=== PATIENT | male | born 1945 | race Caucasian/White ===

== ENCOUNTER 2018-05-18 10:53 | Observation (INO) | payer OTHER ==
--- NOTE | 2018-05-17 16:37 | GHP ---
[f rep st] PREOP HISTORY AND PHYSICAL DATE OF ADMISSION: 05/18/2018 ADMISSION DIAGNOSIS: BPH with urinary retention. HISTORY OF PRESENT ILLNESS: This is a 73-year-old gentleman who has had significant BPH in the past, followed for years, at the present time has elected to undergo surgical treatment. He has been on f inasteride 5 mg a day, and Rapaflo 10 mg a day, and his AUA score was noted to be up to 22 on medicat ion, and he has elected to undergo the procedure. He has had a cystoscopy that revealed a urachal re mnant, and prostate with inflammatory polyps, and a transrectal ultrasound of the prostate that revea led normal seminal vesicles. He had an intravesical lobe of the prostate. Prostate measured 37.1 gm , and a PSA density of 0.038, and he had periurethral calcifications. MEDICATIONS: Have been discussed. ALLERGIES: None. FAMILY HISTORY: Hypertension. SOCIAL HISTORY: Mild alcohol consumption, nonsmoker. REVIEW OF SYSTEMS: Negative cardiac, respiratory, GI, and endocrine. PHYSICAL EXAMINATION: VITAL SIGNS: Stable. CHEST: Clear. HEART: Regular rate and rhythm. ABDOM EN: Normal. No organomegaly, rebound, or guarding. LOWER EXTREMITIES: Normal. PROSTATE: Right i s greater than left, and prostate volume was noted to be 37.1 g. PSA as of 12/09/2016, was 1.06. ASSESSMENT AND PLAN: At the present time, he is admitted for transurethral resection of the prostate . Indications and options have been discussed. Written and verbal consent has been obtained. He is admitted for the above procedure. /[id number]/MODL
--- NOTE | 2018-05-18 07:42 | PDHPUP ---
History & Physical Update H&P update statement: This history and physical update is based on an assessment of the patient which was completed after admission or registration (within 24 hours), but prior to the surgery/procedure. H&P update: H&P reviewed & patient examined, no change in patient's condition since H&P completed
[2018-05-18] MEDS ORDERED: ceFAZolin 2 GM/DEXTROSE 100 ML IV ONE (11:15)
[2018-05-18] MEDS ORDERED: LIDOCAINE 1% 2 ML INJ ID PRN (11:16)
[2018-05-18] MEDS ORDERED: LR 1,000 ML IV ONE (11:16)
--- NOTE | 2018-05-18 12:12 | PDANEPAE ---
ANE Past Medical History - Cardiovascular History Hx Hypertension: No Hx Arrhythmias: No Hx Chest Pain: No Hx Coronary Artery / Peripheral Vascular Disease: No Hx CHF / Valvular Disease: No Hx Palpitations: No Cardiovascular History Comment: SYNCOPAL EPISODE. RBBB. PACEMAKER 2016 - Pulmonary History Hx COPD: No Hx Asthma/Reactive Airway Disease: No Hx Recent Upper Respiratory Infection: No Hx Oxygen in Use at Home: No Hx Sleep Apnea: No Sleep Apnea Screening Result - Last Documented: Negative - Neurologic History Hx Cerebrovascular Accident: No Hx Seizures: No Hx Dementia: No Neurologic History Comment: BALANCE PROBLEM FOLLOWING VESTIBULAR VIRUS IN 2010. OCCAS OCULAR MIGRAINES - Endocrine History Hx Diabetes: No - Renal History Hx Renal Disorders: No Renal History Comment: BPH - Liver History Hx Hepatic Disorders: No - Neurological & Psychiatric Hx Hx Neurological and Psychiatric Disorders: No - Cancer History Hx Cancer: No - Congenital Disorder History Hx Congenital Disorders: No - GI History Hx Gastrointestinal Disorders: No - Other Health History Other Health History: SKIN RASHES OCCAS MILD - Chronic Pain History Chronic Pain: No - Surgical History Prior Surgeries: KNEE SCOPE R. BROW LIFT. COLONOSCOPIES. PACEMAKER IMPLANTED R ANE Review of Systems Review of Systems: - Exercise capacity METS (RN): 5 METS - Pacemaker Pacemaker Type: Permanent Pacer/Defib Pacemaker [employer] Installer: [employer] Date Pacemaker Last Checked: 05-01-2018 ANE Patient History - Allergies Allergies/Adverse Reactions: No Known Allergies Allergy (Verified 05/15/18 10:11) - Home Medications Home Medications: Alfuzosin HCl [Alfuzosin HCl ER] 10 mg PO HS 05/27/15 [Last Taken 1 Day Ago ~] Finasteride [Proscar 5 MG (*)] 5 mg PO DAILY 05/27/15 [Last Taken 05/18/18] Multivitamins [Multivitamin (*)] 1 each PO DAILY 05/27/15 [Last Taken 1 Day Ago ~05/17/18] Herbals/Supplements -Info Only 1 ea PO DAILY 05/15/18 [Last Taken 1 Day Ago ~] Ibuprofen [Motrin (*)] 200 mg PO TID PRN 05/15/18 [Last Taken 1 Week Ago ~] Triamcinolone Acetonide [Nasacort] 1 spray NS DAILY 05/15/18 [Last Taken Unknown ] - NPO status NPO Since - Liquids (Date): 05/18/18 NPO Since - Liquids (Time): 09:15 NPO Since - Solids (Date): 05/18/18 NPO Since - Solids (Time): 03:15 - Smoking Hx Smoking Status: Never smoked ANE Labs/Vital Signs - Vital Signs Blood Pressure: 180/97 Heart Rate: 61 Respiratory Rate: 18 O2 Sat (%): 96 Height: 177.8 cm Weight: 68.353 kg ANE Physical Exam - Airway Neck exam: FROM Mallampati Score: Class 2 Mouth exam: normal dental/mouth exam - Pulmonary Pulmonary: no respiratory distress - Cardiovascular Cardiovascular: regular rate and rhythym - ASA Status ASA Status: II ANE Anesthesia Plan Anesthesia Plan: general endotracheal anesthesia
[2018-05-18] MEDS ORDERED: LIDOCAINE 2% JELLY 20 ML (UROJECT) ONE (12:16)
[2018-05-18] MEDS ORDERED: MIDAZOLAM 2 MG/2 ML VIAL IVP ONE (12:17)
[2018-05-18] MEDS ORDERED: MIDAZOLAM 2 MG/2 ML VIAL ONE (12:24)
[2018-05-18] MEDS ORDERED: PROPOFOL 200 MG/20 ML VIAL ONE (12:31)
[2018-05-18] MEDS ORDERED: fentaNYL 100 MCG/2 ML INJ ONE (12:31)
[2018-05-18] MEDS ORDERED: LIDOCAINE 2% 100 MG/5 ML SYR ONE (12:31)
[2018-05-18] MEDS ORDERED: ROCURONIUM 50 MG/5 ML VIAL ONE (12:31)
[2018-05-18] MEDS ORDERED: SUGAMMADEX SODIUM 200 MG/2 ML VIAL IVP ONE (12:58)
[2018-05-18] MEDS ORDERED: ONDANSETRON 4 MG/2 ML VIAL IVP PRN ×2 (13:56→14:04)
[2018-05-18] MEDS ORDERED: NALOXONE HCL 0.4 MG/ML INJ IVP PRN (13:56)
[2018-05-18] MEDS ORDERED: fentaNYL 100 MCG/2 ML INJ IVP PRN (13:56)
[2018-05-18] MEDS ORDERED: ALBUTEROL 3 ML DEYVIAL IH PRN (13:56)
--- NOTE | 2018-05-18 13:56 | POSTANESTH ---
Post Anesthetic Evaluation Cardiovascular Status: Similar to Pre-Op Cond Respiratory Status: Similar to Pre-op Cond. Level of Consciousness/Mental Status: Mildly Sleepy, Arousable Pain Control: Adequate, Prn Tx Ordered Nausea/Vomiting Control: Adequate, Prn Tx Ordered Complications Possibly Related to Anesthesia: None Noted
[2018-05-18] MEDS ORDERED: ACETAMINOPHEN 325 MG TAB PO PRN (14:04)
[2018-05-18] MEDS ORDERED: ZOLPIDEM TARTRATE 5 MG TAB PO PRN (14:04)
[2018-05-18] MEDS ORDERED: ONDANSETRON DISINTEGRATING 4 MG TAB PO PRN (14:04)
[2018-05-18] MEDS ORDERED: OPIUM/BELLADONNA ALKALO SUPP PR PRN (14:04)
[2018-05-18] MEDS ORDERED: HYDROmorphONE/DILAUDID 1 MG/ML INJ IVP PRN (14:04)
--- NOTE | 2018-05-18 14:04 | POSTOPPROG ---
Post Op Note Date of Operation: 05/18/18 (dictated) Surgeon: Malachi Fishman Anesthesiologist: Nohemi Anesthesia: LMA Pre-op Diagnosis: bph Procedure: turp Inf/Abcess present in the surg proc area at time of surgery?: No EBL: Minimal Drains: Other (hernandez / 100 ml balloon) Specimen(s): sent
--- NOTE | 2018-05-18 14:06 | GOP ---
[f rep st] OPERATIVE REPORT DATE OF OPERATION: 05/18/2018 SURGEON: Malachi Fishman MD PREOPERATIVE DIAGNOSIS: Benign prostatic hypertrophy with urinary obstruction. POSTOPERATIVE DIAGNOSIS: Benign prostatic hypertrophy with urinary obstruction. PROCEDURE PERFORMED: Transurethral resection of the prostate. FINDINGS: DESCRIPTION OF PROCEDURE: Gentleman underwent general anesthesia, prepped and draped in normal steri le fashion. After appropriate time-out, scope was passed into his bladder. He had +4 trabeculation with hyperemia of the bladder. No suggestion of malignancy. He had an intravesical lobe and lateral lobar hypertrophy, so I took down the intravesical lobe initially and then resecting the right later al lobe, right portion of the posterior lobe, left lateral lobe, and left portion of the posterior lo be resected. Hemostasis via cauterization, and his bladder was Ellik'd free of all chips and clots. Visualization revealed no residual chips or clots. Ureteral orifices were clear and in normal posit ion. External sphincter approximated at the midline symmetrically and verumontanum was preserved. U ro-Jet placed in urethra. A 3-way catheter passed to the bladder, 100 cc balloon inflated, traction placed, and irrigated clear. He will be admitted for postoperative care. I will discuss the findings with his . Specimen sent for pathologic assessment. /[id number]/MODL
[2018-05-18] MEDS: POTASSIUM Cl (KCl) 10 MEQ in D5W 1/2 NS 1,000 ML IV SCH ×2 (15:34→22:54)
[2018-05-18] MEDS: FLUTICASONE NASAL 120 SPRAYS/16 GM MDI EACHNARE SCH (21:00)
[2018-05-18] MEDS: HYDROCODONE/APAP 5/325 TAB PO PRN ×2 (21:19→22:53)
[2018-05-19] MEDS: HYDROCODONE/APAP 5/325 TAB PO PRN (05:42)
[2018-05-19] MEDS: POTASSIUM Cl (KCl) 10 MEQ in D5W 1/2 NS 1,000 ML IV SCH (05:43)
--- NOTE | 2018-05-19 10:33 | SOAPPROG ---
SOAP Progress Note Assessment/Plan: Assessment: BPH loc w urin obs/LUTS Acute POD #1, doing well and plan dc hernandez Plan: dc home if pt voids 05/19/18 10:32 Subjective: no problems Objective: Vital Signs Temp Pulse Resp BP Pulse Ox 36.7 C 59 L 18 149/85 H 98 05/19/18 08:55 05/19/18 09:34 05/19/18 09:34 05/19/18 09:34 05/19/18 09:34 05/18/18 05/19/18 05/20/18 05:59 05:59 05:59 Intake Total 3980 Output Total 22224 Balance -6670 Physical Exam - Physical Exam General Appearance: alert Neck: supple Respiratory: No respiratory distress Cardiac/Chest: regular rate, rhythm Male Genitalia: normal genitalia Extremities: No calf tenderness, No Rigo's sign Neuro/Psych: alert, oriented x 3 ICD10 Worksheet Patient Problems: Problems Problem Status Onset BPH loc w urin obs/LUTS Acute Pre-syncope Acute - ICD10 Problem Qualifiers (1) BPH loc w urin obs/LUTS
[2018-05-19] MEDS: FLUTICASONE NASAL 120 SPRAYS/16 GM MDI EACHNARE SCH (10:37)
--- NOTE | 2018-05-19 15:43 | ASDISCHSUM ---
Discharge Information Plan Status:Home with Home Health Medically Cleared to Leave:05/18/2018 Discharge Date:05/18/2018 CM D/C Disposition:Home, Routine, Self-Care ADT D/C Disposition:Home, Routine, Self-Care Projected Discharge Date:05/19/2018 12:00 AM Transportation at D/C:Family Discharge Delay Reason: Follow-Up Date:05/19/2018 12:00 AM Discharge Slot:2 - 12:01 pm - 18:00 pm Final Diagnosis:Severe constipation Placement Information Patient Contact Information Contact Name:CHRISTIANO Relationship: Address:[address] [place] [address] City:[place] Alternate Phone: State/Zip Code:[place] [address] Email: Financial Information Financial Class:Medicare Advantage Plans Primary Plan Desc:[employer] MEDICARE COMPLETE SECURE Primary Plan Number:[id number] Secondary Plan Desc: Secondary Plan Number: Assessment Information Intervention Information
--- NOTE | 2018-05-19 15:48 | ASMTDCNOTE ---
Case Management Discharge Discharge Order Complete? Answers: Yes Patient to Obtain Answers: via Family Medications Transportation Arranged Answers: Family/Friends EMTALA Complete Answers: No Case Management Transport Answers: No Form Complete Faxed Final Orders Answers: No Agency/Facility Transfer Answers: No Report Printed & Faxed to Receiving Agency Family Notified Answers: Yes Discharge Comments Notes: Patient is 73 year old gentleman presented for planned transurethral resection of the prostate. CM met with patient, he will discharge home with family. IM delivered and signed, placed in back of chart. Patient to follow up as recommended. CM available to support if any additional CM needs arise. Date Signed: 05/19/2018 03:48 PM Electronically Signed By:Jacqueline Blanco
[2018-05-19 18:28] VITALS: BP 166/88
== END 2018-05-19 19:07 | disposition home or self-care (01) ==
LOC: F1N 10:53
PROVIDERS: ADMIT Specialist; ATTEND Specialist
PROC: 0TBC8ZZ Excision of Bladder Neck, Via Natural or Artificial Opening Endoscopic (ICD-10-PCS; principal; 2018-05-18 12:30)
DX: N40.1 Benign prostatic hyperplasia with lower urinary tract symptoms (principal); R33.9 Retention of urine, unspecified; R35.0 Frequency of micturition; R26.89 Other abnormalities of gait and mobility; Z95.0 Presence of cardiac pacemaker
CPT/HCPCS: 52500; 88305; G0378; J0690; J2001; J2250; J2704; J3010; J3480

== ENCOUNTER 2018-05-19 23:57 | Emergency (ER) | payer OTHER ==
--- NOTE | 2018-05-20 00:25 | EDPHY ---
General - History Smoking Status: Never smoked Time Seen by Provider: 05/20/18 00:23 Narrative: CLINICAL IMPRESSION: Acute urinary retention ASSESSMENT/PLAN: Patient is a 73-year-old male with a significant medical history of BPH who is postop day 2 transurethral prostatectomy who presents to the emergency department with acute urinary retention. Patient is afebrile and not toxic- appearing, he no acute distress on arrival. Patient's abdomen was soft, mild tenderness in the suprapubic region without rebound or guarding; no evidence of a surgical abdomen. Bladder scan revealed 700 mL retained urine; 450 mL post void residual. History and physical examination today is consistent with acute urinary retention. Patient was treated with a Rios catheter and a large amount of urine was returned. UA revealed RBCs, WBCs, bacteria and trace leukocyte esterase. Urine was sent for culture, treated conservatively with Ceftin which he will continue for the next 7 days. On repeat examination the patient reports he is feeling much better, all symptoms seem to be resolved with the Rios catheter. His abdomen was soft and nontender to palpation, no evidence of a surgical abdomen. The patient is well established with Dr. Fishman , he will call on Tuesday to schedule follow-up and Rios removal. Conservative return precautions discussed-he will return for fever, abdominal pain, chest pain, shortness of breath, recurrent urinary retention or for any other concerning symptom. Patient verbalizes understanding and he is in agreement with this plan. DIFFERENTIAL DX: Differential diagnosis including but not limited to and in no particular order, obstruction, infection, medication side effect, trauma ED COURSE: 0040: Patient with 700 mL on bladder scan, 450 mL post void residual 0045: Case discussed with Dr. New 0144: On repeat examination the patient is well-appearing, he reports that he is feeling much better. His abdomen is soft and nontender to palpation. CHIEF COMPLAINT: Urinary retention HPI: Patient is a 73-year-old male who is postop day 2 after transurethral prostatectomy secondary to BPH who presents to the emergency department with acute urinary retention. Patient was discharged yesterday evening, was able to void prior to discharge. Patient went home yesterday evening, was noticing that his urine output was decreasing. Went to sleep and ultimately is only able to urinate a very small amount and feels that he is retaining. Patient denies any significant blood clots when urinating. He has had no fever, chills , nausea or vomiting. He denies any abdominal discomfort. He has had no chest pain or shortness of breath. He denies any testicular pain or swelling. He denies any other complaints or concerns. PMH: Syncope Pertinent Past Surgical History: Pacemaker implantation, transurethral prostatectomy Family History: Noncontributory Social History: Denies illicit drug use, cigarette smoking REVIEW OF SYSTEMS: All other systems negative Constitutional: No fever, no chills, appetite change. Eyes: No discharge, vision change ENT: No sore throat, congestion, ear pain. Cardiovascular: No chest pain, no palpitations. Respiratory: No cough, no shortness of breath. Gastrointestinal: No abdominal pain, no vomiting, diarrhea. Genitourinary: Urinary retention. Musculoskeletal: No back pain, joint swelling, joint pain, myalgias. Skin: No rashes, color change. Neurological: No headache, dizziness, weakness. PHYSICAL EXAM: General Appearance: Patient is well-appearing, no acute distress. HENT: Normocephalic, atraumatic. Bilateral external ears are normal. Bilateral tympanic membranes are normal with pearly womack reflex. Nares are clear, mucosa is pink. Oropharynx is clear, uvula is midline. There is no tonsillar enlargement or exudate. The dentition is normal. Eyes: PERRLA, no acute vision change, nystagmus, swelling, discharge, pain or photosensitivity. Conjunctiva pink, no pallor or injection Neck: Supple, nontender, no lymphadenopathy, no midline pain, FROM, no meningismus. Respiratory: There are no retractions, lungs are clear to auscultation. Cardiac: Regular rate and rhythm, no murmurs or gallops. Gastrointestinal: Patient's abdomen is soft, mildly distended. He has tenderness to palpation in the suprapubic region, no rigidity, guarding or focal peritoneal findings. Bowel sounds are normal. No masses or hernias appreciated. Neurological: Alert and oriented x 3, CN 2-12 grossly intact, normal gait no ataxia, DTR's intact, normal sensation and strength Skin: Warm, dry, no rashes, no nodules on palpation. Musculoskeletal: Extremities are symmetrical, full range of motion, no tenderness, deformity, swelling, or erythema. Psychiatric: Patient is oriented X 3, there is no agitation. MEDICAL DECISION MAKING: Patient was seen independently. Secondary supervising physician at time of evaluation was Dr. New, she did not personally evaluate this patient. Diagnosis: Acute urinary retention. New, requires workup Summary: See Assessment and Plan for summary of ED visit Clinical lab tests: ordered / reviewed. Independent visualization of images, tracing, or specimens: Yes. Decision to obtain medical records or history from someone other than the patient: Yes, Review / Summarize previous medical records: Yes Discussed patient with another provider: Yes, Dr. New Patient Progress: Stable, discharge. (Elaine Kaur) PHYSICIAN DOCUMENTATION: The patient was evaluated and managed by the Physician Property Caretaker. My co- signature indicates that I have reviewed this chart and I agree with the findings and plan of care as documented. I am the secondary supervising physician. (Kayla New) - Objective Vital Signs: Initial Vital Signs Temperature (C) 36.4 C 05/20/18 00:03 Heart Rate 64 05/20/18 00:03 Respiratory Rate 16 05/20/18 00:03 Blood Pressure 162/80 H 05/20/18 00:03 O2 Sat (%) 95 05/20/18 00:03 O2 Delivery Mode Room Air Allergies/Adverse Reactions: No Known Allergies Allergy (Verified 05/15/18 10:11) Home Medications: Medication Instructions Recorded Alfuzosin HCl [Alfuzosin HCl ER] 10 mg PO HS 05/27/15 Finasteride [Proscar 5 MG (*)] 5 mg PO DAILY 05/27/15 Multivitamins [Multivitamin (*)] 1 each PO DAILY 05/27/15 Herbals/Supplements -Info Only 1 ea PO DAILY 05/15/18 Ibuprofen [Motrin (*)] 200 mg PO TID PRN 05/15/18 Triamcinolone Acetonide [Nasacort] 1 spray NS DAILY 05/15/18 Cefuroxime Axetil [Ceftin (*)] 500 mg PO BID 7 Days tab 05/20/18 Microbiology Results: MICROBIOLOGY 05/20/18 00:55 Urine,Catheterized Urine Culture - Preliminary Medications Given: Discontinued Medications Cefuroxime Axetil (Ceftin) 500 mg PO ONCE ONE PRN Reason: Protocol Stop: 05/20/18 01:45 Last Admin: 05/20/18 02:23 Dose: 500 mg Departure - Departure Disposition: Home, Routine, Self-Care Clinical Impression: Acute urinary retention Condition: Good Instructions: Urinary Retention in Men (ED) Additional Instructions: DISCHARGE INSTRUCTIONS FROM YOUR DOCTOR Thank you for visiting our emergency department today. Please keep in mind that discharge from the emergency department does not mean that there is nothing wrong - it simply means that we have not identified an emergency condition that requires further evaluation or treatment in the hospital. You should always plan to follow up with primary care for re-evaluation of your condition in the next 2-[address] Fishman Tuesday morning to schedule follow-up for repeat examination. Please leave your Rios in place until follow-up with Dr. Fishman. Return to the emergency department for development of abdominal pain, urinary retention, fever or for any other concerning symptom. People present with illnesses and injuries in different ways, and it is always possible that we have missed something. You may always return for re-evaluation if symptoms worsen or if they are not improving or if you develop new/different symptoms. Again, thank you for choosing our emergency department. We hope that you feel better. Referrals: Cece Saunders MD [Primary Care Provider] - As per Instructions Malachi Fishman MD [Medical Doctor] - 2-3 days, call for appt. Prescriptions: Cefuroxime Axetil [Ceftin (*)] 500 mg PO BID 7 Days tab
[2018-05-20] MEDS ORDERED: CEFUROXIME AXETIL 250 MG TAB PO ONE (01:44)
[2018-05-20 01:52] VITALS: BP 154/80
== END 2018-05-20 02:32 | disposition home or self-care (01) ==
DX: R33.9 Retention of urine, unspecified (principal)

== ENCOUNTER 2018-06-03 15:55 | Emergency (ER) | payer OTHER ==
--- NOTE | 2018-06-03 16:56 | EDPHY ---
H & P Time Seen by Provider: 06/03/18 16:30 HPI/ROS: CHIEF COMPLAINT: Penile irritation HISTORY OF PRESENT ILLNESS: The patient is a 73-year-old male who has irritation at the tip of his penis starting today. The patient had a TURP on by Dr. Fishman. He subsequently was discharged on 05/19/2018. He had difficulty with urination a Rios was placed. It was subsequently removed a week later. He has been doing fine until today when he noticed redness at the tip of his penis. He denies fevers or chills. No dysuria frequency. No hematuria. REVIEW OF SYSTEMS: 10 systems were reveiwed and are negative with the exception of the elements mentioned in the history of present illness. Past Medical/Surgical History: Includes BPH, bradycardia Past surgical history: TURP, orthopedic surgery, pacemaker placement Smoking Status: Never smoked Physical Exam: Vitals noted. Afebrile General Appearance: Alert and no distress. Head: Pupils equal. Normal. Respiratory: No respiratory distress. Cardiac: regular rate and rhythm. : The patient's has minimal redness at his meatus. There is no surrounding erythema. No discharge. No tenderness to palpation. No moles scrotum and testicles. Extremities: Full range of motion, normal appearing. Skin: No rashes or lesions. Neuro: Alert. Normal mood and affect. Constitutional: Initial Vital Signs Temperature (C) 36.1 C 06/03/18 16:03 Heart Rate 67 06/03/18 16:03 Respiratory Rate 18 06/03/18 16:03 Blood Pressure 178/87 H 06/03/18 16:03 O2 Sat (%) 97 06/03/18 16:03 O2 Delivery Mode Room Air Allergies/Adverse Reactions: No Known Allergies Allergy (Verified 05/15/18 10:11) Home Medications: Medication Instructions Recorded Alfuzosin HCl [Alfuzosin HCl ER] 10 mg PO HS 05/27/15 Finasteride [Proscar 5 MG (*)] 5 mg PO DAILY 05/27/15 Multivitamins [Multivitamin (*)] 1 each PO DAILY 05/27/15 Herbals/Supplements -Info Only 1 ea PO DAILY 05/15/18 Ibuprofen [Motrin (*)] 200 mg PO TID PRN 05/15/18 Triamcinolone Acetonide [Nasacort] 1 spray NS DAILY 05/15/18 Cefuroxime Axetil [Ceftin (*)] 500 mg PO BID 7 Days tab 05/20/18 Medical Decision Making ED Course/Re-evaluation: In the emergency department I discussed possible etiologies with the patient. I answered all of his questions. UA showed red blood cells but no other infection findings. I discussed the results with the patient. I answered all his questions. Patient will apply bacitracin to the tip of his penis. He will follow up with Dr. Fishman next week. He was given warnings and will return if his symptoms worsen. I do not feel he needs systemic antibiotics at this time. - Data Points Laboratory Results: 06/03/18 16:25 Urine Color PALE YELLOW Urine Appearance CLEAR Urine pH 7.0 (5.0-7.5) Ur Specific [place] 1.004 (1.002-1.030) Urine Protein NEGATIVE (NEGATIVE) Urine Ketones NEGATIVE (NEGATIVE) Urine Blood 3+ H (NEGATIVE) Urine Nitrate NEGATIVE (NEGATIVE) Urine Bilirubin NEGATIVE (NEGATIVE) Urine Urobilinogen NEGATIVE EU EU (0.2-1.0) Ur Leukocyte Esterase TRACE H (NEGATIVE) Urine RBC 5-10 /hpf H /hpf (0-3) Urine WBC 1-3 /hpf /hpf (0-3) Ur Epithelial Cells TRACE /lpf /lpf (NONE-1+) Urine Glucose NEGATIVE (NEGATIVE) Departure - Departure Disposition: Home, Routine, Self-Care Clinical Impression: Penile abnormality Condition: Good Instructions: Foreskin Care (ED), Acute Rash (ED) Additional Instructions: Apply bacitracin to the tip of your penis. Call Dr. Fishman on Tuesday if her symptoms are worsening. Return to the emergency department sooner if you developed increasing redness, pain, fever or any other concerns. Your urine test was unremarkable Referrals: Malachi Fishman MD [Medical Doctor] - 5-7 days, call for appt.
[2018-06-03 17:29] VITALS: BP 154/82
== END 2018-06-03 17:29 | disposition home or self-care (01) ==
DX: N50.9 Disorder of male genital organs, unspecified (principal)

== ENCOUNTER 2018-07-06 05:45 | Emergency (ER) | payer OTHER ==
[2018-07-06 05:51] VITALS: BP 161/107
--- NOTE | 2018-07-06 06:45 | EDPHY ---
H & P Stated Complaint: urinary retention Time Seen by Provider: 07/06/18 05:50 HPI/ROS: HPI The patient presents with concern for urinary retention with decreased urinary output over the last several hours. The patient initially had a TURP performed on May [address] Fishman. This was complicated by urinary retention requiring a Rios catheter for 3 days. Patient eventually was able to void without catheter after this. Yesterday, he went to Dr. Fishman office and had a cystoscopy with some sort of dilation procedure. As he was able to void freely afterwards and felt much better. He did notice occasional blood clots when he voided. As he usually does, he restricted his fluid intake over the afternoon and evening hours. He noticed a small amount of blood and decreased stream overnight. This morning, when he was unable to void, he came into the emergency department. He does not have any abdominal distention, pain, fever.. REVIEW OF SYSTEMS 10 systems were reviewed and negative with the exception of the elements mentioned in the history of present illness. PMHx: History of TURP procedure, cystoscopy yesterday by Dr. Fishman Soc Hx: Here with his , housed PHYSICAL General Appearance: Alert, no distress Eyes: Pupils equal and round no pallor or injection ENT, Mouth: Mucous membranes moist Respiratory: There are no retractions, lungs are clear to auscultation Cardiovascular: Regular rate and rhythm Gastrointestinal: Abdomen is soft and non-tender, no masses, bowel sounds normal Neurological: A&O, moves all extremities Skin: Warm and dry, no rashes Extremities: symmetrical, full range of motion Psychiatric: Patient is oriented X 3, there is no agitation Source: Patient Exam Limitations: No limitations - Personal History Current Tetanus/Diphtheria Vaccine: Yes Current Tetanus Diphtheria and Acellular Pertussis (TDAP): Yes - Medical/Surgical History Hx Asthma: No Hx Chronic Respiratory Disease: No Hx Diabetes: No Hx Cardiac Disease: Yes Hx Renal Disease: No Hx Cirrhosis: No Hx Alcoholism: No Hx HIV/AIDS: No Hx Splenectomy or Spleen Trauma: No Other PMH: ENLARGED PROSTATE, BPH, TURP 05/19/2018, ORTHOSCOPIC KNEE, PACEMAKER BRADYCARDIA, urinary retention. - Social History Smoking Status: Never smoked Constitutional: Initial Vital Signs Temperature (C) 36.5 C 07/06/18 05:48 Heart Rate 60 07/06/18 05:48 Respiratory Rate 18 07/06/18 05:48 Blood Pressure 161/107 H 07/06/18 05:48 O2 Sat (%) 96 07/06/18 05:48 O2 Delivery Mode Room Air Allergies/Adverse Reactions: No Known Allergies Allergy (Verified 07/06/18 05:47) Home Medications: Medication Instructions Recorded Alfuzosin HCl [Alfuzosin HCl ER] 10 mg PO HS 05/27/15 Finasteride [Proscar 5 MG (*)] 5 mg PO DAILY 05/27/15 Multivitamins [Multivitamin (*)] 1 each PO DAILY 05/27/15 Herbals/Supplements -Info Only 1 ea PO DAILY 05/15/18 Ibuprofen [Motrin (*)] 200 mg PO TID PRN 05/15/18 Triamcinolone Acetonide [Nasacort] 1 spray NS DAILY 05/15/18 Cefuroxime Axetil [Ceftin (*)] 500 mg PO BID 7 Days tab 05/20/18 Medical Decision Making Differential Diagnosis: This is a 73-year-old man with history of BPH, status post TURP about 2 months ago, status post cystoscopy with urethral dilation yesterday by Dr. Fishman, presents with decreased urine output with occasional blood clots. Here, bladder scan was performed and the patient had only 28 mL of urine visualized. His physical exam is not demonstrate any abdominal distension. It could be because he has not had any fluid intake for the last 12 hr he does not have any urine in his bladder. We plan to give him a p. O. Trial and obtain another postvoid residual. It is possible he could have obstructing blood clot. Departure - Departure Disposition: Home, Routine, Self-Care Clinical Impression: Acute urinary retention Condition: Good Instructions: Urinary Retention in Men (ED) Referrals: Cece Saunders MD [Primary Care Provider] - As per Instructions Malachi Fishman MD [Medical Doctor] - As per Instructions
== END 2018-07-06 08:17 | disposition home or self-care (01) ==
PROC: 4A1D7LZ Monitoring of Urinary Volume, Via Natural or Artificial Opening (ICD-10-PCS; principal; 2018-07-06)
DX: R33.9 Retention of urine, unspecified (principal); N40.1 Benign prostatic hyperplasia with lower urinary tract symptoms